=== PATIENT | male | born 1940 | race African-American/Black ===

== ENCOUNTER 2022-07-24 10:44 | Observation (INO) ==
[2022-07-24 11:21] LABS: Basophils # 0.1 10*3/uL (0.0-0.2); Basophils % 0.5 % (0.0-0.8); Eosinophils # 0.1 10*3/uL (0.0-0.87); Hematocrit 36.3 VOL% (42.0-52.0); Hemoglobin 11.1 GM/DL (14.0-18.0); Immature Granulocytes % 1.2 %; Immature Granulocytes Absolute 0.13 #; Lymphocytes # 1.6 10*3/uL (1.4-4.0); Lymphocytes % 14.8 % (21.2-54.2); Mean Corpuscular HGB Conc 30.6 GM/DL (32-36); Mean Corpuscular Volume 84.2 FL (87-102); Mean Platelet Volume 11.3 FL (9.6-12.0); Monocytes # 1.2 10*3/uL (0.11-0.8); Monocytes % 10.5 % (1.7-12.7); Platelet Count 134 T/CUMM (130-400); Red Blood Count 4.31 MC/CUMM (3.8-5.5); Red Cell Distribution Width 15.7 % (9.3-17.3)
[2022-07-24 11:42] LABS: Albumin 3.1 G/DL (3.4-5.0); Bilirubin,Total 0.7 MG/DL (0.20-1.00); Calcium 9.6 MG/DL (8.5-10.1); Osmolality,Calculated 291.7 MOS/KG (273-304); Potassium 4.3 MMOL/L (3.5-5.1); Total Protein 8.5 G/DL (6.4-8.2)
[2022-07-24] MEDS ORDERED: HEPARIN 1,000 UNIT/1 ML VIAL IV STA (12:11)
[2022-07-24] MEDS ORDERED: HEPARIN 5,000 UNIT/1 ML VIAL IV STA (12:18)
[2022-07-24] MEDS ORDERED: HEPARIN DRIP 25,000 UNITS/500 ML PREMIX IV SCH ×2 (12:30→13:30)
[2022-07-24] MEDS ORDERED: GLUCAGON 1 MG VIAL IM PRN (13:14)
[2022-07-24] MEDS ORDERED: DEXTROSE 10% 250 ML BAG IV PRN (13:28)
[2022-07-24] MEDS: SODIUM CHLORIDE 0.9% 1,000 ML IV SCH (15:12)
[2022-07-24] MEDS: INSULIN LISPRO 100 UNIT/ML SUBCUT SCH ×2 (17:31→21:54)
[2022-07-24] MEDS ORDERED: ATORVASTATIN 10 MG TABLET PO SCH (21:00)
[2022-07-24] MEDS: METOPROLOL TARTRATE 50 MG TABLET PO SCH (21:54)
[2022-07-24] MEDS: INSULIN NPH/REGULAR 70/30 100 UNIT/ML SUBCUT SCH (21:54)
[2022-07-24] MEDS: TAMSULOSIN 0.4 MG CAPSULE PO SCH (21:55)
[2022-07-25] MEDS: ALBUTEROL/IPRATROPIUM 3 ML NEB RESP TX SCH ×2 (01:08→07:35)
[2022-07-25] MEDS: SODIUM CHLORIDE 0.9% 1,000 ML IV SCH (04:59)
[2022-07-25 05:52] LABS: Basophils % 0.3 % (0.0-0.8); Eosinophils # 0.2 10*3/uL (0.0-0.87); Eosinophils % 1.9 % (0.00-10.9); Hematocrit 32.2 VOL% (42.0-52.0); Immature Granulocytes Absolute 0.09 #; Lymphocytes # 1.3 10*3/uL (1.4-4.0); Mean Corpuscular HGB Conc 31.1 GM/DL (32-36); Mean Corpuscular Volume 84.1 FL (87-102); Mean Platelet Volume 11.8 FL (9.6-12.0); Monocytes # 1.1 10*3/uL (0.11-0.8); Monocytes % 12.4 % (1.7-12.7); Neutrophils % 69.4 % (38.7-73.9); Platelet Count 141 T/CUMM (130-400); Red Blood Count 3.83 MC/CUMM (3.8-5.5); Red Cell Distribution Width 15.7 % (9.3-17.3); White Blood Count 8.7 T/CUMM (4-12)
[2022-07-25 06:29] LABS: Calcium 9.1 MG/DL (8.5-10.1); Osmolality,Calculated 291.5 MOS/KG (273-304); Potassium 4.4 MMOL/L (3.5-5.1); Risk Ratio 1.95; Thyroid Stimulating Hormone 1.78 uIU/ml (0.358-3.74); VLDL Cholesterol 14.6 MG/DL
[2022-07-25] MEDS ORDERED: LEVOTHYROXINE 50 MCG TABLET PO SCH (06:30)
[2022-07-25] MEDS ORDERED: glipiZIDE 5 MG TABLET PO SCH (08:00)
[2022-07-25 08:02] VITALS: BP 126/60
[2022-07-25] MEDS ORDERED: DAPAGLIFLOZIN 10 MG TABLET PO SCH (09:00)
[2022-07-25] MEDS ORDERED: MONTELUKAST 10 MG TABLET PO SCH (09:00)
[2022-07-25] MEDS ORDERED: sitaGLIPtin 25 MG TABLET PO SCH (09:00)
[2022-07-25] MEDS ORDERED: PANTOPRAZOLE 40 MG TABLET PO SCH (09:00)
[2022-07-25] MEDS ORDERED: hydroCHLOROthiazide 12.5 MG CAPSULE PO SCH (09:00)
[2022-07-25] MEDS ORDERED: amLODIPine 5 MG TABLET PO SCH (09:00)
[2022-07-25] MEDS: TAMSULOSIN 0.4 MG CAPSULE PO SCH (09:11)
[2022-07-25] MEDS: INSULIN LISPRO 100 UNIT/ML SUBCUT SCH (09:12)
[2022-07-25] MEDS: METOPROLOL TARTRATE 50 MG TABLET PO SCH (09:12)
[2022-07-25] MEDS: INSULIN NPH/REGULAR 70/30 100 UNIT/ML SUBCUT SCH (09:13)
[2022-07-25] MEDS ORDERED: APIXABAN 2.5 MG TABLET PO SCH (09:47)
== END 2022-07-25 12:18 | disposition home health service (06) ==
LOC: N.ED 10:44 → N.EDINP 10:44 → N.TELEN 15:51
PROVIDERS: ADMIT Internal Medicine; ATTEND Internal Medicine

== ENCOUNTER 2022-07-26 11:21 | Inpatient (IN) ==
[2022-07-26] MEDS ORDERED: GLUCAGON 1 MG VIAL IM PRN (14:54)
[2022-07-26] MEDS ORDERED: ACETAMINOPHEN 325 MG TABLET PO PRN (14:56)
[2022-07-26 15:03] LABS: Basophils % 0.5 % (0.0-0.8); Eosinophils # 0.1 10*3/uL (0.0-0.87); Eosinophils % 0.7 % (0.00-10.9); Hematocrit 33.4 VOL% (42.0-52.0); Hemoglobin 10.4 GM/DL (14.0-18.0); Immature Granulocytes % 1.1 %; Lymphocytes # 0.8 10*3/uL (1.4-4.0); Lymphocytes % 9.3 % (21.2-54.2); Mean Corpuscular HGB Conc 31.1 GM/DL (32-36); Mean Corpuscular Volume 83.9 FL (87-102); Mean Platelet Volume 11.4 FL (9.6-12.0); Neutrophils % 77.4 % (38.7-73.9); Platelet Count 155 T/CUMM (130-400); Red Blood Count 3.98 MC/CUMM (3.8-5.5); Red Cell Distribution Width 15.5 % (9.3-17.3); White Blood Count 8.9 T/CUMM (4-12)
[2022-07-26] MEDS ORDERED: DEXTROSE 10% 250 ML BAG IV PRN (15:44)
[2022-07-26] MEDS ORDERED: INFLUENZA VIRUS VACCINE 0.5 ML SYRINGE IM ONE (16:06)
[2022-07-26] MEDS: INSULIN LISPRO 100 UNIT/ML SUBCUT SCH ×2 (16:41→21:00)
[2022-07-26] MEDS ORDERED: SALIVA SUBSTITUTE SPRAY 60 ML CAN SWISH/SWAL PRN (16:46)
[2022-07-26] MEDS: MORPHINE 2 MG/1 ML SYRINGE IV PRN (17:19)
[2022-07-26 18:12] LABS: Albumin 2.5 G/DL (3.4-5.0); Bilirubin,Total 0.6 MG/DL (0.20-1.00); Calcium 9.1 MG/DL (8.5-10.1); Osmolality,Calculated 293.5 MOS/KG (273-304); Potassium 4.5 MMOL/L (3.5-5.1); Total Protein 7.6 G/DL (6.4-8.2)
[2022-07-26] MEDS ORDERED: APIXABAN 5 MG TABLET PO SCH (21:00)
[2022-07-26] MEDS: INSULIN NPH/REG 70/30 100 UNIT/ML SUBCUT SCH (21:10)
[2022-07-26] MEDS: TAMSULOSIN 0.4 MG CAPSULE PO SCH (21:15)
[2022-07-26] MEDS: ATORVASTATIN 10 MG TABLET PO SCH (21:16)
[2022-07-26] MEDS: METOPROLOL TARTRATE 50 MG TABLET PO SCH (21:16)
[2022-07-27] MEDS ORDERED: ZALEPLON 5 MG CAPSULE PO PRN (00:30)
[2022-07-27] MEDS: LEVOTHYROXINE 50 MCG TABLET PO SCH (05:57)
[2022-07-27 07:22] LABS: Basophils % 0.5 % (0.0-0.8); Eosinophils # 0.2 10*3/uL (0.0-0.87); Eosinophils % 1.8 % (0.00-10.9); Hematocrit 31.2 VOL% (42.0-52.0); Hemoglobin 10.1 GM/DL (14.0-18.0); Immature Granulocytes % 0.8 %; Immature Granulocytes Absolute 0.07 #; Lymphocytes # 1.4 10*3/uL (1.4-4.0); Lymphocytes % 16.4 % (21.2-54.2); Mean Corpuscular HGB Conc 32.4 GM/DL (32-36); Mean Corpuscular Volume 84.3 FL (87-102); Mean Platelet Volume 11.8 FL (9.6-12.0); Monocytes # 1.1 10*3/uL (0.11-0.8); Monocytes % 13.5 % (1.7-12.7); Platelet Count 169 T/CUMM (130-400); Red Cell Distribution Width 15.7 % (9.3-17.3); White Blood Count 8.5 T/CUMM (4-12)
[2022-07-27 07:34] LABS: Albumin 2.4 G/DL (3.4-5.0); Bilirubin,Total 0.6 MG/DL (0.20-1.00); Calcium 8.9 MG/DL (8.5-10.1); Osmolality,Calculated 290.5 MOS/KG (273-304); Potassium 4.8 MMOL/L (3.5-5.1); Total Protein 7.5 G/DL (6.4-8.2)
[2022-07-27 09:17] LABS: Cancer Antigen 19-9 247.21 U/ML (0-35); Carcinoembryonic Antigen 742.5 NG/ML (0.0-5.0)
[2022-07-27] MEDS: INSULIN LISPRO 100 UNIT/ML SUBCUT SCH ×4 (09:31→20:34)
[2022-07-27] MEDS: INSULIN NPH/REG 70/30 100 UNIT/ML SUBCUT SCH ×2 (09:32→20:34)
[2022-07-27] MEDS: PIPERACILLIN/TAZOBACTAM 3,375 MG in SODIUM CHLORIDE 0.9% 100 ML IV SCH ×2 (09:57→16:14)
[2022-07-27] MEDS: SODIUM CHLORIDE 0.9% 1,000 ML IV SCH (09:57)
[2022-07-27] MEDS: METOPROLOL TARTRATE 50 MG TABLET PO SCH ×2 (10:02→20:30)
[2022-07-27] MEDS: TAMSULOSIN 0.4 MG CAPSULE PO SCH ×2 (10:02→20:29)
[2022-07-27] MEDS: MORPHINE 2 MG/1 ML SYRINGE IV PRN ×2 (10:10→20:32)
[2022-07-27] MEDS: amLODIPine 5 MG TABLET PO SCH (13:11)
[2022-07-27] MEDS: APIXABAN 5 MG TABLET PO SCH ×2 (13:11→20:29)
[2022-07-27] MEDS: DAPAGLIFLOZIN 10 MG TABLET PO SCH (13:11)
[2022-07-27] MEDS: MONTELUKAST 10 MG TABLET PO SCH (13:12)
[2022-07-27] MEDS: ATORVASTATIN 10 MG TABLET PO SCH (20:30)
[2022-07-28] MEDS: SODIUM CHLORIDE 0.9% 1,000 ML IV SCH (00:36)
[2022-07-28] MEDS: PIPERACILLIN/TAZOBACTAM 3,375 MG in SODIUM CHLORIDE 0.9% 100 ML IV SCH ×3 (00:54→17:02)
[2022-07-28] MEDS: LEVOTHYROXINE 50 MCG TABLET PO SCH (05:48)
[2022-07-28 06:00] LABS: Basophils % 0.4 % (0.0-0.8); Eosinophils # 0.1 10*3/uL (0.0-0.87); Eosinophils % 1.9 % (0.00-10.9); Hematocrit 29.8 VOL% (42.0-52.0); Hemoglobin 9.2 GM/DL (14.0-18.0); Immature Granulocytes % 0.8 %; Immature Granulocytes Absolute 0.06 #; Lymphocytes % 12.7 % (21.2-54.2); Mean Corpuscular HGB Conc 30.9 GM/DL (32-36); Mean Corpuscular Volume 84.7 FL (87-102); Mean Platelet Volume 11.1 FL (9.6-12.0); Monocytes % 13.1 % (1.7-12.7); Neutrophils % 71.1 % (38.7-73.9); Platelet Count 167 T/CUMM (130-400); Red Blood Count 3.52 MC/CUMM (3.8-5.5); Red Cell Distribution Width 15.4 % (9.3-17.3); White Blood Count 7.6 T/CUMM (4-12)
[2022-07-28 06:18] LABS: Albumin 2.2 G/DL (3.4-5.0); Bilirubin,Total 0.7 MG/DL (0.20-1.00); Calcium 8.7 MG/DL (8.5-10.1); Osmolality,Calculated 287.5 MOS/KG (273-304); Potassium 4.3 MMOL/L (3.5-5.1)
[2022-07-28] MEDS: METOPROLOL TARTRATE 50 MG TABLET PO SCH ×2 (09:00→21:31)
[2022-07-28] MEDS: INSULIN NPH/REG 70/30 100 UNIT/ML SUBCUT SCH ×2 (09:00→22:35)
[2022-07-28] MEDS: TAMSULOSIN 0.4 MG CAPSULE PO SCH ×2 (09:00→21:31)
[2022-07-28] MEDS: DAPAGLIFLOZIN 10 MG TABLET PO SCH (09:00)
[2022-07-28] MEDS: amLODIPine 5 MG TABLET PO SCH (09:00)
[2022-07-28] MEDS: MONTELUKAST 10 MG TABLET PO SCH (09:00)
[2022-07-28] MEDS: APIXABAN 5 MG TABLET PO SCH (09:00)
[2022-07-28] MEDS: INSULIN LISPRO 100 UNIT/ML SUBCUT SCH ×4 (09:58→22:35)
[2022-07-28] MEDS: HEPARIN DRIP 25,000 UNITS/500 ML PREMIX IV SCH (10:19)
[2022-07-28] MEDS: diphenhydrAMINE CAP 25 MG CAPSULE PO PRN (11:16)
[2022-07-28] MEDS: ATORVASTATIN 10 MG TABLET PO SCH (21:31)
[2022-07-28] MEDS: MORPHINE 2 MG/1 ML SYRINGE IV PRN (22:34)
[2022-07-29] MEDS: PIPERACILLIN/TAZOBACTAM 3,375 MG in SODIUM CHLORIDE 0.9% 100 ML IV SCH ×3 (01:19→17:28)
[2022-07-29 05:29] LABS: Basophils % 0.5 % (0.0-0.8); Eosinophils # 0.2 10*3/uL (0.0-0.87); Eosinophils % 2.3 % (0.00-10.9); Hematocrit 29.3 VOL% (42.0-52.0); Hemoglobin 8.9 GM/DL (14.0-18.0); Immature Granulocytes % 0.9 %; Immature Granulocytes Absolute 0.07 #; Lymphocytes # 1.1 10*3/uL (1.4-4.0); Lymphocytes % 15.2 % (21.2-54.2); Mean Corpuscular HGB Conc 30.4 GM/DL (32-36); Mean Platelet Volume 10.9 FL (9.6-12.0); Monocytes # 1.1 10*3/uL (0.11-0.8); Monocytes % 14.4 % (1.7-12.7); Neutrophils % 66.7 % (38.7-73.9); Platelet Count 210 T/CUMM (130-400); Red Blood Count 3.49 MC/CUMM (3.8-5.5); Red Cell Distribution Width 15.5 % (9.3-17.3); White Blood Count 7.5 T/CUMM (4-12)
[2022-07-29 05:58] LABS: Albumin 2.1 G/DL (3.4-5.0); Bilirubin,Total 0.8 MG/DL (0.20-1.00); Calcium 8.7 MG/DL (8.5-10.1); Osmolality,Calculated 288.4 MOS/KG (273-304); Potassium 4.4 MMOL/L (3.5-5.1); Total Protein 6.9 G/DL (6.4-8.2)
[2022-07-29] MEDS: LEVOTHYROXINE 50 MCG TABLET PO SCH (06:25)
[2022-07-29 07:33] LABS: INR 1.1; PT Patient Result 12.4 SECS (10.1-12.1)
[2022-07-29] MEDS: TAMSULOSIN 0.4 MG CAPSULE PO SCH ×2 (09:08→21:38)
[2022-07-29] MEDS: amLODIPine 5 MG TABLET PO SCH (09:08)
[2022-07-29] MEDS: DAPAGLIFLOZIN 10 MG TABLET PO SCH (09:08)
[2022-07-29] MEDS: diphenhydrAMINE CAP 25 MG CAPSULE PO PRN ×2 (09:08→17:28)
[2022-07-29] MEDS: METOPROLOL TARTRATE 50 MG TABLET PO SCH ×2 (09:08→21:38)
[2022-07-29] MEDS: MONTELUKAST 10 MG TABLET PO SCH (09:08)
[2022-07-29] MEDS: INSULIN NPH/REG 70/30 100 UNIT/ML SUBCUT SCH ×2 (09:09→21:47)
[2022-07-29] MEDS: HEPARIN DRIP 25,000 UNITS/500 ML PREMIX IV SCH ×2 (09:31→14:39)
[2022-07-29] MEDS: INSULIN LISPRO 100 UNIT/ML SUBCUT SCH ×4 (09:31→21:46)
[2022-07-29] MEDS: ATORVASTATIN 10 MG TABLET PO SCH (21:38)
[2022-07-30] MEDS: PIPERACILLIN/TAZOBACTAM 3,375 MG in SODIUM CHLORIDE 0.9% 100 ML IV SCH ×3 (01:14→18:14)
[2022-07-30] MEDS: LEVOTHYROXINE 50 MCG TABLET PO SCH (05:55)
[2022-07-30 06:13] LABS: Basophils % 0.6 % (0.0-0.8); Eosinophils # 0.2 10*3/uL (0.0-0.87); Hematocrit 28.4 VOL% (42.0-52.0); Hemoglobin 8.8 GM/DL (14.0-18.0); Immature Granulocytes % 1.2 %; Immature Granulocytes Absolute 0.09 #; Lymphocytes # 1.4 10*3/uL (1.4-4.0); Lymphocytes % 18.8 % (21.2-54.2); Mean Corpuscular Volume 83.5 FL (87-102); Monocytes % 14.2 % (1.7-12.7); Neutrophils % 62.2 % (38.7-73.9); Platelet Count 258 T/CUMM (130-400); Red Cell Distribution Width 15.4 % (9.3-17.3); White Blood Count 7.2 T/CUMM (4-12)
[2022-07-30 06:25] LABS: Calcium 8.9 MG/DL (8.5-10.1); Osmolality,Calculated 280.7 MOS/KG (273-304); Potassium 4.3 MMOL/L (3.5-5.1)
[2022-07-30] MEDS: INSULIN LISPRO 100 UNIT/ML SUBCUT SCH ×4 (08:07→20:40)
[2022-07-30] MEDS: TAMSULOSIN 0.4 MG CAPSULE PO SCH ×2 (08:31→20:38)
[2022-07-30] MEDS: DAPAGLIFLOZIN 10 MG TABLET PO SCH (08:31)
[2022-07-30] MEDS: INSULIN NPH/REG 70/30 100 UNIT/ML SUBCUT SCH ×2 (08:31→20:44)
[2022-07-30] MEDS: METOPROLOL TARTRATE 50 MG TABLET PO SCH ×2 (08:32→20:38)
[2022-07-30] MEDS: amLODIPine 5 MG TABLET PO SCH (08:32)
[2022-07-30] MEDS: MONTELUKAST 10 MG TABLET PO SCH (08:32)
[2022-07-30] MEDS: diphenhydrAMINE CAP 25 MG CAPSULE PO PRN (08:32)
[2022-07-30] MEDS: ALUMINUM/MAGNES/SIMETH MAX STR 30 ML UDCUP PO PRN (09:00)
[2022-07-30] MEDS: HEPARIN DRIP 25,000 UNITS/500 ML PREMIX IV SCH (11:55)
[2022-07-30] MEDS: ALBUTEROL 2.5 MG/3 ML NEB RESP TX PRN (15:38)
[2022-07-30] MEDS: ATORVASTATIN 10 MG TABLET PO SCH (20:38)
[2022-07-31] MEDS: MORPHINE 2 MG/1 ML SYRINGE IV PRN (01:46)
[2022-07-31] MEDS: PIPERACILLIN/TAZOBACTAM 3,375 MG in SODIUM CHLORIDE 0.9% 100 ML IV SCH ×3 (01:47→17:12)
[2022-07-31 06:04] LABS: Basophils % 0.4 % (0.0-0.8); Eosinophils # 0.2 10*3/uL (0.0-0.87); Eosinophils % 2.5 % (0.00-10.9); Hematocrit 29.1 VOL% (42.0-52.0); Immature Granulocytes % 1.2 %; Immature Granulocytes Absolute 0.09 #; Lymphocytes # 1.4 10*3/uL (1.4-4.0); Lymphocytes % 18.9 % (21.2-54.2); Mean Corpuscular HGB Conc 30.9 GM/DL (32-36); Mean Corpuscular Volume 83.1 FL (87-102); Monocytes % 14.3 % (1.7-12.7); Neutrophils % 62.7 % (38.7-73.9); Platelet Count 265 T/CUMM (130-400); Red Cell Distribution Width 15.5 % (9.3-17.3); White Blood Count 7.3 T/CUMM (4-12)
[2022-07-31 06:23] LABS: Calcium 9.3 MG/DL (8.5-10.1); Osmolality,Calculated 280.7 MOS/KG (273-304); Potassium 4.2 MMOL/L (3.5-5.1)
[2022-07-31] MEDS: LEVOTHYROXINE 50 MCG TABLET PO SCH (07:37)
[2022-07-31] MEDS: INSULIN LISPRO 100 UNIT/ML SUBCUT SCH ×4 (08:04→21:00)
[2022-07-31] MEDS: TAMSULOSIN 0.4 MG CAPSULE PO SCH ×2 (08:04→21:00)
[2022-07-31] MEDS: DAPAGLIFLOZIN 10 MG TABLET PO SCH (08:04)
[2022-07-31] MEDS: INSULIN NPH/REG 70/30 100 UNIT/ML SUBCUT SCH ×2 (08:05→22:22)
[2022-07-31] MEDS: MONTELUKAST 10 MG TABLET PO SCH (08:05)
[2022-07-31] MEDS ORDERED: DIAZEPAM 5 MG TABLET PO ONE ×2 (09:06→09:30)
[2022-07-31] MEDS: amLODIPine 5 MG TABLET PO SCH (11:22)
[2022-07-31] MEDS: METOPROLOL TARTRATE 50 MG TABLET PO SCH ×2 (11:22→21:00)
[2022-07-31] MEDS: SODIUM CHLORIDE 0.45% 1,000 ML IV SCH (11:32)
[2022-07-31] MEDS: diphenhydrAMINE CAP 25 MG CAPSULE PO PRN (13:14)
[2022-07-31] MEDS: HEPARIN DRIP 25,000 UNITS/500 ML PREMIX IV SCH (15:44)
[2022-07-31] MEDS: ALBUTEROL 2.5 MG/3 ML NEB RESP TX PRN (15:50)
[2022-07-31] MEDS: ATORVASTATIN 10 MG TABLET PO SCH (21:00)
[2022-07-31] MEDS ORDERED: APIXABAN 5 MG TABLET PO SCH (21:00)
[2022-08-01] MEDS: PIPERACILLIN/TAZOBACTAM 3,375 MG in SODIUM CHLORIDE 0.9% 100 ML IV SCH ×2 (01:43→08:02)
[2022-08-01 05:11] LABS: Basophils % 0.4 % (0.0-0.8); Eosinophils # 0.2 10*3/uL (0.0-0.87); Eosinophils % 2.8 % (0.00-10.9); Hematocrit 28.3 VOL% (42.0-52.0); Hemoglobin 8.7 GM/DL (14.0-18.0); Immature Granulocytes % 1.3 %; Immature Granulocytes Absolute 0.09 #; Lymphocytes % 14.6 % (21.2-54.2); Mean Corpuscular HGB Conc 30.7 GM/DL (32-36); Mean Corpuscular Volume 83.5 FL (87-102); Monocytes # 1.2 10*3/uL (0.11-0.8); Monocytes % 16.6 % (1.7-12.7); Neutrophils % 64.3 % (38.7-73.9); Platelet Count 290 T/CUMM (130-400); Red Blood Count 3.39 MC/CUMM (3.8-5.5); Red Cell Distribution Width 15.4 % (9.3-17.3); White Blood Count 7.1 T/CUMM (4-12)
[2022-08-01 05:34] LABS: Calcium 8.9 MG/DL (8.5-10.1); Osmolality,Calculated 280.5 MOS/KG (273-304); Potassium 4.5 MMOL/L (3.5-5.1)
[2022-08-01 05:46] LABS: Hypochromia 1+; Lymphocytes 14 % (20-55); Microcytosis Slight; Ovalocytes Slight; Target Cells Slight; Total Cells Counted 100
[2022-08-01 05:47] LABS: Platelet Estimate Normal; Polychromasia Slight
[2022-08-01] MEDS: LEVOTHYROXINE 50 MCG TABLET PO SCH (06:19)
[2022-08-01] MEDS: HEPARIN DRIP 25,000 UNITS/500 ML PREMIX IV SCH (07:00)
[2022-08-01] MEDS: INSULIN LISPRO 100 UNIT/ML SUBCUT SCH ×4 (07:23→21:14)
[2022-08-01] MEDS: INSULIN NPH/REG 70/30 100 UNIT/ML SUBCUT SCH ×2 (08:02→21:14)
[2022-08-01] MEDS: TAMSULOSIN 0.4 MG CAPSULE PO SCH ×2 (08:03→21:14)
[2022-08-01] MEDS: MONTELUKAST 10 MG TABLET PO SCH (08:03)
[2022-08-01] MEDS: DAPAGLIFLOZIN 10 MG TABLET PO SCH (08:03)
[2022-08-01] MEDS: amLODIPine 5 MG TABLET PO SCH (08:03)
[2022-08-01] MEDS: METOPROLOL TARTRATE 50 MG TABLET PO SCH ×2 (08:03→21:14)
[2022-08-01] MEDS: SODIUM CHLORIDE 0.45% 1,000 ML IV SCH (08:39)
[2022-08-01 11:22] LABS: INR 1.1; PT Patient Result 12.1 SECS (10.1-12.1); Partial Thromboplastin Time 92.3 SECS (23.7-32.9)
[2022-08-01] MEDS: ALUMINUM/MAGNES/SIMETH MAX STR 30 ML UDCUP PO PRN (15:11)
[2022-08-01] MEDS: ONDANSETRON 4 MG/2 ML VIAL IV PRN (18:24)
[2022-08-01] MEDS ORDERED: APIXABAN 2.5 MG TABLET PO SCH (21:00)
[2022-08-01] MEDS: ATORVASTATIN 10 MG TABLET PO SCH (21:14)
[2022-08-02] MEDS: LEVOTHYROXINE 50 MCG TABLET PO SCH (05:42)
[2022-08-02 05:56] LABS: Basophils % 0.3 % (0.0-0.8); Eosinophils # 0.1 10*3/uL (0.0-0.87); Eosinophils % 1.1 % (0.00-10.9); Hematocrit 27.7 VOL% (42.0-52.0); Hemoglobin 8.6 GM/DL (14.0-18.0); Immature Granulocytes % 0.6 %; Immature Granulocytes Absolute 0.04 #; Lymphocytes # 1.2 10*3/uL (1.4-4.0); Lymphocytes % 15.9 % (21.2-54.2); Mean Corpuscular Volume 83.9 FL (87-102); Mean Platelet Volume 10.6 FL (9.6-12.0); Monocytes # 1.1 10*3/uL (0.11-0.8); Monocytes % 15.4 % (1.7-12.7); Neutrophils % 66.7 % (38.7-73.9); Platelet Count 268 T/CUMM (130-400); Red Cell Distribution Width 15.3 % (9.3-17.3); White Blood Count 7.2 T/CUMM (4-12)
[2022-08-02 06:19] LABS: Calcium 9.3 MG/DL (8.5-10.1); Osmolality,Calculated 282.1 MOS/KG (273-304); Potassium 4.2 MMOL/L (3.5-5.1)
[2022-08-02] MEDS: METOPROLOL TARTRATE 50 MG TABLET PO SCH ×2 (10:43→21:01)
[2022-08-02] MEDS: MONTELUKAST 10 MG TABLET PO SCH (10:43)
[2022-08-02] MEDS: DAPAGLIFLOZIN 10 MG TABLET PO SCH (10:43)
[2022-08-02] MEDS: APIXABAN 5 MG TABLET PO SCH ×2 (10:43→21:00)
[2022-08-02] MEDS: TAMSULOSIN 0.4 MG CAPSULE PO SCH ×2 (10:44→21:01)
[2022-08-02] MEDS: amLODIPine 5 MG TABLET PO SCH (10:44)
[2022-08-02] MEDS: INSULIN LISPRO 100 UNIT/ML SUBCUT SCH ×4 (10:44→22:18)
[2022-08-02] MEDS: INSULIN NPH/REG 70/30 100 UNIT/ML SUBCUT SCH (10:45)
[2022-08-02] MEDS: ALUMINUM/MAGNES/SIMETH MAX STR 30 ML UDCUP PO PRN ×2 (10:49→14:53)
[2022-08-02] MEDS: ALBUTEROL 2.5 MG/3 ML NEB RESP TX PRN (11:29)
[2022-08-02] MEDS: ATORVASTATIN 10 MG TABLET PO SCH (21:01)
[2022-08-03] MEDS: INSULIN NPH/REG 70/30 100 UNIT/ML SUBCUT SCH ×3 (01:17→21:03)
[2022-08-03] MEDS: ALUMINUM/MAGNES/SIMETH MAX STR 30 ML UDCUP PO PRN (03:08)
[2022-08-03] MEDS: LEVOTHYROXINE 50 MCG TABLET PO SCH (06:30)
[2022-08-03 08:45] LABS: Basophils % 0.4 % (0.0-0.8); Eosinophils # 0.1 10*3/uL (0.0-0.87); Eosinophils % 1.2 % (0.00-10.9); Hematocrit 28.3 VOL% (42.0-52.0); Hemoglobin 8.6 GM/DL (14.0-18.0); Immature Granulocytes % 1.3 %; Lymphocytes % 13.1 % (21.2-54.2); Mean Corpuscular HGB Conc 30.4 GM/DL (32-36); Mean Platelet Volume 9.7 FL (9.6-12.0); Monocytes # 1.2 10*3/uL (0.11-0.8); Monocytes % 15.2 % (1.7-12.7); Neutrophils % 68.8 % (38.7-73.9); Platelet Count 249 T/CUMM (130-400); Red Blood Count 3.33 MC/CUMM (3.8-5.5); Red Cell Distribution Width 15.8 % (9.3-17.3); White Blood Count 7.6 T/CUMM (4-12)
[2022-08-03] MEDS: TAMSULOSIN 0.4 MG CAPSULE PO SCH ×2 (08:53→20:58)
[2022-08-03] MEDS: MONTELUKAST 10 MG TABLET PO SCH (08:53)
[2022-08-03] MEDS: METOPROLOL TARTRATE 50 MG TABLET PO SCH ×2 (08:53→20:58)
[2022-08-03] MEDS: ONDANSETRON 4 MG/2 ML VIAL IV PRN ×2 (08:53→19:10)
[2022-08-03] MEDS: DAPAGLIFLOZIN 10 MG TABLET PO SCH (08:53)
[2022-08-03] MEDS: APIXABAN 5 MG TABLET PO SCH (08:53)
[2022-08-03] MEDS: amLODIPine 5 MG TABLET PO SCH (08:53)
[2022-08-03 09:08] LABS: Calcium 9.2 MG/DL (8.5-10.1); Osmolality,Calculated 283.4 MOS/KG (273-304); Potassium 4.8 MMOL/L (3.5-5.1)
[2022-08-03] MEDS: INSULIN LISPRO 100 UNIT/ML SUBCUT SCH ×4 (09:11→21:04)
[2022-08-03] MEDS: ENOXAPARIN 80 MG/0.8 ML SYRINGE SUBCUT SCH (09:59)
[2022-08-03] MEDS: SERTRALINE 25 MG TABLET PO SCH (13:37)
[2022-08-03] MEDS: ATORVASTATIN 10 MG TABLET PO SCH (20:58)
[2022-08-04] MEDS: ENOXAPARIN 80 MG/0.8 ML SYRINGE SUBCUT SCH ×2 (00:19→10:27)
[2022-08-04 05:04] LABS: Basophils # 0.1 10*3/uL (0.0-0.2); Basophils % 0.7 % (0.0-0.8); Eosinophils # 0.1 10*3/uL (0.0-0.87); Eosinophils % 1.3 % (0.00-10.9); Hematocrit 26.8 VOL% (42.0-52.0); Hemoglobin 8.2 GM/DL (14.0-18.0); Immature Granulocytes % 0.9 %; Immature Granulocytes Absolute 0.07 #; Lymphocytes # 1.1 10*3/uL (1.4-4.0); Lymphocytes % 15.3 % (21.2-54.2); Mean Corpuscular HGB Conc 30.6 GM/DL (32-36); Mean Corpuscular Volume 84.5 FL (87-102); Monocytes # 1.2 10*3/uL (0.11-0.8); Monocytes % 16.7 % (1.7-12.7); Neutrophils % 65.1 % (38.7-73.9); Platelet Count 248 T/CUMM (130-400); Red Blood Count 3.17 MC/CUMM (3.8-5.5); Red Cell Distribution Width 15.5 % (9.3-17.3); White Blood Count 7.4 T/CUMM (4-12)
[2022-08-04 05:21] LABS: Calcium 8.9 MG/DL (8.5-10.1); Osmolality,Calculated 283.3 MOS/KG (273-304); Potassium 4.4 MMOL/L (3.5-5.1)
[2022-08-04] MEDS: LEVOTHYROXINE 50 MCG TABLET PO SCH (06:22)
[2022-08-04 07:01] LABS: Eosinophils 2 % (0-10); Hypochromia Slight; Lymphocytes 10 % (20-55); Metamyelocytes 1 %; Microcytosis Slight; Platelet Estimate Normal; Total Cells Counted 100
[2022-08-04] MEDS: INSULIN LISPRO 100 UNIT/ML SUBCUT SCH ×3 (07:39→16:30)
[2022-08-04] MEDS: DAPAGLIFLOZIN 10 MG TABLET PO SCH (09:46)
[2022-08-04] MEDS: TAMSULOSIN 0.4 MG CAPSULE PO SCH ×2 (09:46→20:29)
[2022-08-04] MEDS: METOPROLOL TARTRATE 50 MG TABLET PO SCH ×2 (09:46→20:29)
[2022-08-04] MEDS: MONTELUKAST 10 MG TABLET PO SCH (09:46)
[2022-08-04] MEDS: SERTRALINE 25 MG TABLET PO SCH (09:47)
[2022-08-04] MEDS: amLODIPine 5 MG TABLET PO SCH (09:47)
[2022-08-04] MEDS: INSULIN NPH/REG 70/30 100 UNIT/ML SUBCUT SCH (09:51)
[2022-08-04] MEDS: ALUMINUM/MAGNES/SIMETH MAX STR 30 ML UDCUP PO PRN (19:57)
[2022-08-04] MEDS: ATORVASTATIN 10 MG TABLET PO SCH (20:29)
[2022-08-04] MEDS: ZALEPLON 5 MG CAPSULE PO PRN (20:29)
[2022-08-05] MEDS: INSULIN LISPRO 100 UNIT/ML SUBCUT SCH ×5 (01:00→21:13)
[2022-08-05] MEDS: INSULIN NPH/REG 70/30 100 UNIT/ML SUBCUT SCH ×3 (01:00→21:31)
[2022-08-05] MEDS: ONDANSETRON 4 MG/2 ML VIAL IV PRN ×2 (02:15→08:54)
[2022-08-05] MEDS: ENOXAPARIN 80 MG/0.8 ML SYRINGE SUBCUT SCH ×3 (03:16→21:57)
[2022-08-05 05:31] LABS: Basophils % 0.2 % (0.0-0.8); Eosinophils # 0.1 10*3/uL (0.0-0.87); Eosinophils % 0.7 % (0.00-10.9); Hematocrit 26.2 VOL% (42.0-52.0); Hemoglobin 8.1 GM/DL (14.0-18.0); Immature Granulocytes Absolute 0.08 #; Lymphocytes # 0.9 10*3/uL (1.4-4.0); Lymphocytes % 10.6 % (21.2-54.2); Mean Corpuscular HGB Conc 30.9 GM/DL (32-36); Mean Corpuscular Volume 83.4 FL (87-102); Mean Platelet Volume 10.6 FL (9.6-12.0); Monocytes # 1.1 10*3/uL (0.11-0.8); Monocytes % 13.4 % (1.7-12.7); Neutrophils % 74.1 % (38.7-73.9); Platelet Count 304 T/CUMM (130-400); Red Blood Count 3.14 MC/CUMM (3.8-5.5); Red Cell Distribution Width 15.4 % (9.3-17.3); White Blood Count 8.1 T/CUMM (4-12)
[2022-08-05 05:45] LABS: Calcium 8.8 MG/DL (8.5-10.1); Osmolality,Calculated 279.5 MOS/KG (273-304); Potassium 4.1 MMOL/L (3.5-5.1)
[2022-08-05] MEDS: LEVOTHYROXINE 50 MCG TABLET PO SCH (06:50)
[2022-08-05] MEDS: MONTELUKAST 10 MG TABLET PO SCH (08:54)
[2022-08-05] MEDS: DAPAGLIFLOZIN 10 MG TABLET PO SCH (08:54)
[2022-08-05] MEDS: SERTRALINE 25 MG TABLET PO SCH (08:54)
[2022-08-05] MEDS: TAMSULOSIN 0.4 MG CAPSULE PO SCH ×2 (08:55→21:56)
[2022-08-05] MEDS: METOPROLOL TARTRATE 50 MG TABLET PO SCH ×2 (08:55→21:56)
[2022-08-05] MEDS: amLODIPine 5 MG TABLET PO SCH (08:55)
[2022-08-05] MEDS: ATORVASTATIN 10 MG TABLET PO SCH (21:56)
[2022-08-06] MEDS: LEVOTHYROXINE 50 MCG TABLET PO SCH (05:39)
[2022-08-06 05:54] LABS: Basophils % 0.4 % (0.0-0.8); Eosinophils # 0.1 10*3/uL (0.0-0.87); Eosinophils % 1.1 % (0.00-10.9); Hematocrit 26.3 VOL% (42.0-52.0); Hemoglobin 8.3 GM/DL (14.0-18.0); Immature Granulocytes % 1.1 %; Immature Granulocytes Absolute 0.08 #; Lymphocytes # 1.2 10*3/uL (1.4-4.0); Lymphocytes % 16.3 % (21.2-54.2); Mean Corpuscular HGB Conc 31.6 GM/DL (32-36); Monocytes # 1.2 10*3/uL (0.11-0.8); Neutrophils % 64.1 % (38.7-73.9); Platelet Count 300 T/CUMM (130-400); Red Blood Count 3.13 MC/CUMM (3.8-5.5); Red Cell Distribution Width 15.5 % (9.3-17.3); White Blood Count 7.3 T/CUMM (4-12)
[2022-08-06 06:09] LABS: Calcium 9.1 MG/DL (8.5-10.1); Potassium 4.1 MMOL/L (3.5-5.1)
[2022-08-06 06:17] LABS: Hypochromia 1+; Lymphocytes 12 % (20-55); Microcytosis 1+; Platelet Estimate Adequate; Total Cells Counted 100
[2022-08-06] MEDS: INSULIN LISPRO 100 UNIT/ML SUBCUT SCH ×4 (09:02→21:17)
[2022-08-06] MEDS: INSULIN NPH/REG 70/30 100 UNIT/ML SUBCUT SCH ×2 (10:35→21:16)
[2022-08-06] MEDS: TAMSULOSIN 0.4 MG CAPSULE PO SCH ×2 (10:35→21:17)
[2022-08-06] MEDS: DAPAGLIFLOZIN 10 MG TABLET PO SCH (10:35)
[2022-08-06] MEDS: amLODIPine 5 MG TABLET PO SCH (10:36)
[2022-08-06] MEDS: SERTRALINE 25 MG TABLET PO SCH (10:36)
[2022-08-06] MEDS: METOPROLOL TARTRATE 50 MG TABLET PO SCH ×2 (10:36→21:17)
[2022-08-06] MEDS: MONTELUKAST 10 MG TABLET PO SCH (10:36)
[2022-08-06] MEDS: ENOXAPARIN 80 MG/0.8 ML SYRINGE SUBCUT SCH ×2 (10:36→21:18)
[2022-08-06] MEDS: ALUMINUM/MAGNES/SIMETH MAX STR 30 ML UDCUP PO PRN (11:29)
[2022-08-06] MEDS ORDERED: hydrALAZINE 20 MG/1 ML VIAL IV PRN (12:21)
[2022-08-06] MEDS: MORPHINE 2 MG/1 ML SYRINGE IV PRN (20:11)
[2022-08-06] MEDS: ATORVASTATIN 10 MG TABLET PO SCH (21:17)
[2022-08-07 05:38] LABS: Basophils % 0.4 % (0.0-0.8); Eosinophils % 0.1 % (0.00-10.9); Hematocrit 28.9 VOL% (42.0-52.0); Hemoglobin 8.8 GM/DL (14.0-18.0); Immature Granulocytes % 1.3 %; Immature Granulocytes Absolute 0.11 #; Lymphocytes # 0.8 10*3/uL (1.4-4.0); Lymphocytes % 9.2 % (21.2-54.2); Mean Corpuscular HGB Conc 30.4 GM/DL (32-36); Mean Corpuscular Volume 84.5 FL (87-102); Mean Platelet Volume 10.7 FL (9.6-12.0); Monocytes # 1.2 10*3/uL (0.11-0.8); Platelet Count 309 T/CUMM (130-400); Red Blood Count 3.42 MC/CUMM (3.8-5.5); Red Cell Distribution Width 15.5 % (9.3-17.3); White Blood Count 8.2 T/CUMM (4-12)
[2022-08-07] MEDS: LEVOTHYROXINE 50 MCG TABLET PO SCH (05:39)
[2022-08-07 05:52] LABS: Osmolality,Calculated 278.4 MOS/KG (273-304); Potassium 3.8 MMOL/L (3.5-5.1)
[2022-08-07] MEDS: INSULIN LISPRO 100 UNIT/ML SUBCUT SCH ×4 (07:31→21:20)
[2022-08-07] MEDS: MONTELUKAST 10 MG TABLET PO SCH (13:27)
[2022-08-07] MEDS: amLODIPine 5 MG TABLET PO SCH (13:27)
[2022-08-07] MEDS: DAPAGLIFLOZIN 10 MG TABLET PO SCH (13:27)
[2022-08-07] MEDS: METOPROLOL TARTRATE 50 MG TABLET PO SCH ×2 (13:27→21:00)
[2022-08-07] MEDS: SERTRALINE 25 MG TABLET PO SCH (13:27)
[2022-08-07] MEDS: TAMSULOSIN 0.4 MG CAPSULE PO SCH ×2 (13:28→21:00)
[2022-08-07] MEDS: ENOXAPARIN 80 MG/0.8 ML SYRINGE SUBCUT SCH ×2 (13:29→21:00)
[2022-08-07] MEDS: MORPHINE 2 MG/1 ML SYRINGE IV PRN (18:16)
[2022-08-07] MEDS: ATORVASTATIN 10 MG TABLET PO SCH (21:00)
[2022-08-07] MEDS: INSULIN NPH/REG 70/30 100 UNIT/ML SUBCUT SCH (21:21)
[2022-08-08] MEDS: LEVOTHYROXINE 50 MCG TABLET PO SCH (06:12)
[2022-08-08] MEDS: INSULIN LISPRO 100 UNIT/ML SUBCUT SCH ×4 (08:41→21:40)
[2022-08-08] MEDS: INSULIN NPH/REG 70/30 100 UNIT/ML SUBCUT SCH ×2 (08:42→09:34)
[2022-08-08] MEDS: amLODIPine 5 MG TABLET PO SCH (09:34)
[2022-08-08] MEDS: METOPROLOL TARTRATE 50 MG TABLET PO SCH ×2 (09:34→21:12)
[2022-08-08] MEDS: DAPAGLIFLOZIN 10 MG TABLET PO SCH (09:34)
[2022-08-08] MEDS: TAMSULOSIN 0.4 MG CAPSULE PO SCH ×2 (09:34→21:12)
[2022-08-08] MEDS: ENOXAPARIN 80 MG/0.8 ML SYRINGE SUBCUT SCH ×2 (09:35→21:40)
[2022-08-08] MEDS: SERTRALINE 25 MG TABLET PO SCH (09:35)
[2022-08-08] MEDS: MONTELUKAST 10 MG TABLET PO SCH (09:35)
[2022-08-08] MEDS: ONDANSETRON 4 MG/2 ML VIAL IV PRN (09:40)
[2022-08-08] MEDS ORDERED: TUBERCULIN SKIN TEST 0.1 ML SYRINGE INTRADERM ONE (12:00)
[2022-08-08] MEDS: MORPHINE 2 MG/1 ML SYRINGE IV PRN (16:46)
[2022-08-08] MEDS: ZALEPLON 5 MG CAPSULE PO PRN (21:12)
[2022-08-08] MEDS: ATORVASTATIN 10 MG TABLET PO SCH (21:12)
[2022-08-09] MEDS: LEVOTHYROXINE 50 MCG TABLET PO SCH (06:03)
[2022-08-09] MEDS: INSULIN LISPRO 100 UNIT/ML SUBCUT SCH ×4 (07:28→21:03)
[2022-08-09] MEDS: amLODIPine 5 MG TABLET PO SCH (08:31)
[2022-08-09] MEDS: DAPAGLIFLOZIN 10 MG TABLET PO SCH (08:31)
[2022-08-09] MEDS: METOPROLOL TARTRATE 50 MG TABLET PO SCH ×2 (08:31→21:03)
[2022-08-09] MEDS: TAMSULOSIN 0.4 MG CAPSULE PO SCH ×2 (08:32→21:03)
[2022-08-09] MEDS: SERTRALINE 25 MG TABLET PO SCH (08:32)
[2022-08-09] MEDS: MONTELUKAST 10 MG TABLET PO SCH (08:32)
[2022-08-09] MEDS: ENOXAPARIN 80 MG/0.8 ML SYRINGE SUBCUT SCH ×2 (09:53→21:03)
[2022-08-09] MEDS: MORPHINE 2 MG/1 ML SYRINGE IV PRN (15:17)
[2022-08-09] MEDS: ZALEPLON 5 MG CAPSULE PO PRN (21:02)
[2022-08-09] MEDS: ATORVASTATIN 10 MG TABLET PO SCH (21:02)
[2022-08-10] MEDS: diphenhydrAMINE CAP 25 MG CAPSULE PO PRN (03:05)
[2022-08-10] MEDS: LEVOTHYROXINE 50 MCG TABLET PO SCH (05:47)
[2022-08-10 06:02] LABS: Basophils % 0.4 % (0.0-0.8); Eosinophils # 0.1 10*3/uL (0.0-0.87); Hematocrit 29.2 VOL% (42.0-52.0); Hemoglobin 9.1 GM/DL (14.0-18.0); Immature Granulocytes % 1.4 %; Lymphocytes # 1.2 10*3/uL (1.4-4.0); Lymphocytes % 16.4 % (21.2-54.2); Mean Corpuscular HGB Conc 31.2 GM/DL (32-36); Mean Corpuscular Volume 83.7 FL (87-102); Mean Platelet Volume 10.1 FL (9.6-12.0); Monocytes # 1.1 10*3/uL (0.11-0.8); Monocytes % 15.7 % (1.7-12.7); Neutrophils % 65.1 % (38.7-73.9); Platelet Count 332 T/CUMM (130-400); Red Blood Count 3.49 MC/CUMM (3.8-5.5); Red Cell Distribution Width 15.8 % (9.3-17.3); White Blood Count 7.2 T/CUMM (4-12)
[2022-08-10 06:28] LABS: Calcium 9.1 MG/DL (8.5-10.1); Osmolality,Calculated 282.4 MOS/KG (273-304); Potassium 4.4 MMOL/L (3.5-5.1)
[2022-08-10 06:30] LABS: Eosinophils 1 % (0-10); Hypochromia 1+; Lymphocytes 17 % (20-55); Microcytosis 1+; Platelet Estimate Adequate; Total Cells Counted 100
[2022-08-10 07:44] VITALS: BP 164/61
[2022-08-10] MEDS: INSULIN LISPRO 100 UNIT/ML SUBCUT SCH (07:45)
[2022-08-10] MEDS: TAMSULOSIN 0.4 MG CAPSULE PO SCH (09:00)
[2022-08-10] MEDS: amLODIPine 5 MG TABLET PO SCH (09:01)
[2022-08-10] MEDS: METOPROLOL TARTRATE 50 MG TABLET PO SCH (09:01)
[2022-08-10] MEDS: SERTRALINE 25 MG TABLET PO SCH (09:01)
[2022-08-10] MEDS: MONTELUKAST 10 MG TABLET PO SCH (09:02)
[2022-08-10] MEDS: DAPAGLIFLOZIN 10 MG TABLET PO SCH (09:02)
[2022-08-10] MEDS: ENOXAPARIN 80 MG/0.8 ML SYRINGE SUBCUT SCH (11:05)
== END 2022-08-10 11:59 | disposition home health service (06) | DRG 175 ==
LOC: N.ED 11:21 → SUATTDRO 14:55 → N.EDINP 14:55 → N.3E 15:59
PROVIDERS: ADMIT Internal Medicine; ATTEND Internal Medicine

== ENCOUNTER 2022-09-16 16:17 | Inpatient (IN) ==
[2022-09-16] MEDS ORDERED: SODIUM CHLORIDE 0.9% 1,000 ML IV STA ×2 (17:24→18:24)
[2022-09-16] MEDS ORDERED: ONDANSETRON 4 MG/2 ML VIAL IV STA (17:24)
[2022-09-16 17:33] LABS: Basophils % 0.3 % (0.0-0.8); Eosinophils % 0.2 % (0.00-10.9); Hematocrit 32.4 VOL% (42.0-52.0); Hemoglobin 10.1 GM/DL (14.0-18.0); Immature Granulocytes Absolute 0.09 #; Lymphocytes # 1.2 10*3/uL (1.4-4.0); Lymphocytes % 12.7 % (21.2-54.2); Mean Corpuscular HGB Conc 31.2 GM/DL (32-36); Mean Corpuscular Volume 79.4 FL (87-102); Monocytes # 0.8 10*3/uL (0.11-0.8); Monocytes % 8.2 % (1.7-12.7); NRBC # 0.02 10*3/uL; Neutrophils % 77.6 % (38.7-73.9); Platelet Count 275 T/CUMM (130-400); Red Blood Count 4.08 MC/CUMM (3.8-5.5); Red Cell Distribution Width 18.4 % (9.3-17.3); White Blood Count 9.3 T/CUMM (4-12)
[2022-09-16 17:49] LABS: Alanine Aminotransferase 83 U/L (16-61); Albumin 2.1 G/DL (3.4-5.0); Alkaline Phosphatase 632 U/L (45-117); Amylase 28 U/L (25-115); Aspartate Amino Transferase 143 U/L (0-37); Blood Urea Nitrogen 79 MG/DL (7-18); Calcium 9.4 MG/DL (8.5-10.1); Carbon Dioxide 22 MMOL/L (21-32); Chloride 112 MMOL/L (98-107); Glucose 249 MG/DL (74-106); Sodium 143 MMOL/L (136-145); Total Protein 8.2 G/DL (6.4-8.2)
[2022-09-16 19:14] LABS: Target Cells 1+
[2022-09-16 19:15] LABS: Hypochromia Slight; Microcytosis Slight; Platelet Estimate Normal
[2022-09-16 20:16] LABS: Amorphous Crystals,Urine Occasional /HPF (Few); Bacteria,Urine Occasional /HPF (Few); Hyaline Casts,Urine 3 /LPF (0-3); Mucus,Urine Occasional /LPF (Occasional); RBC,Urine 2 /HPF (0-4); Squamous Epithelial Cell,Urine Occasional /HPF (0-10)
[2022-09-16 20:17] LABS: Bilirubin,Urine Large mg/dL (Negative); Blood, Urine Small mg/dL (Negative); Glucose,Urine (UA) >=1000 mg/dL (Negative); Ketones,Urine Trace mg/dL (Negative); Nitrite,Urine Negative (Negative); Protein,Urine 30 mg/dL (Negative); Urine Appearance Clear (Clear); Urine Color Dark Yellow (Yellow); Urine Urobilinogen 0.2 eU/dL (<2.0); Urine pH 5.5 (4.5-8.0)
[2022-09-16] MEDS ORDERED: INFLUENZA VIRUS VACCINE 0.5 ML SYRINGE IM ONE (21:56)
[2022-09-16] MEDS: TAMSULOSIN 0.4 MG CAPSULE PO SCH (22:36)
[2022-09-16] MEDS: SODIUM CHLORIDE 0.9% 1,000 ML IV SCH (22:38)
[2022-09-16] MEDS: MORPHINE ER 15 MG TABLET PO SCH (23:09)
[2022-09-17] MEDS ORDERED: ALBUTEROL 2.5 MG/3 ML NEB RESP TX PRN (01:00)
[2022-09-17 06:15] LABS: Basophils % 0.3 % (0.0-0.8); Eosinophils % 0.3 % (0.00-10.9); Hematocrit 29.8 VOL% (42.0-52.0); Hemoglobin 9.4 GM/DL (14.0-18.0); Lymphocytes # 1.5 10*3/uL (1.4-4.0); Lymphocytes % 15.1 % (21.2-54.2); Mean Corpuscular HGB Conc 31.5 GM/DL (32-36); Mean Corpuscular Volume 81.2 FL (87-102); Mean Platelet Volume 10.9 FL (9.6-12.0); Monocytes # 0.9 10*3/uL (0.11-0.8); Monocytes % 9.4 % (1.7-12.7); NRBC # 0.02 10*3/uL; Neutrophils % 73.9 % (38.7-73.9); Platelet Count 242 T/CUMM (130-400); Red Blood Count 3.67 MC/CUMM (3.8-5.5); Red Cell Distribution Width 18.7 % (9.3-17.3)
[2022-09-17 06:45] LABS: Albumin 1.9 G/DL (3.4-5.0); Bilirubin,Total 9.6 MG/DL (0.20-1.00); Calcium 9.3 MG/DL (8.5-10.1); Osmolality,Calculated 312.4 MOS/KG (273-304); Potassium 4.4 MMOL/L (3.5-5.1); Total Protein 7.9 G/DL (6.4-8.2)
[2022-09-17] MEDS: LEVOTHYROXINE 50 MCG TABLET PO SCH (07:21)
[2022-09-17] MEDS: SODIUM CHLORIDE 0.9% 1,000 ML IV SCH ×2 (07:21→15:21)
[2022-09-17] MEDS: INSULIN REGULAR 100 UNIT/ML SUBCUT SCH ×4 (07:53→21:53)
[2022-09-17] MEDS: amLODIPine 5 MG TABLET PO SCH (09:57)
[2022-09-17] MEDS: MONTELUKAST 10 MG TABLET PO SCH (09:57)
[2022-09-17] MEDS: METOPROLOL TARTRATE 50 MG TABLET PO SCH ×3 (09:57→22:04)
[2022-09-17] MEDS: APIXABAN 5 MG TABLET PO SCH ×2 (09:57→21:53)
[2022-09-17] MEDS: CETIRIZINE 10 MG TABLET PO SCH (09:57)
[2022-09-17] MEDS: TAMSULOSIN 0.4 MG CAPSULE PO SCH ×2 (09:57→21:53)
[2022-09-17] MEDS: PANTOPRAZOLE 40 MG TABLET PO SCH (09:57)
[2022-09-17 11:44] LABS: % Iron Saturation 21.1 % (18-50)
[2022-09-17] MEDS: MORPHINE ER 15 MG TABLET PO SCH ×2 (11:46→21:58)
[2022-09-17] MEDS: ONDANSETRON 4 MG/2 ML VIAL IV PRN (11:50)
[2022-09-17 12:06] LABS: Vitamin B12 > 2000 PG/ML (211-911)
[2022-09-17] MEDS ORDERED: MORPHINE 2 MG/1 ML SYRINGE IV PRN (14:11)
[2022-09-17] MEDS ORDERED: hydrALAZINE 20 MG/1 ML VIAL IV PRN (14:18)
[2022-09-17] MEDS: MIRTAZAPINE 15 MG TABLET PO SCH (21:53)
[2022-09-18] MEDS: SODIUM CHLORIDE 0.9% 1,000 ML IV SCH ×2 (00:29→11:11)
[2022-09-18 05:09] LABS: Basophils # 0.1 10*3/uL (0.0-0.2); Basophils % 0.4 % (0.0-0.8); Eosinophils # 0.1 10*3/uL (0.0-0.87); Eosinophils % 0.8 % (0.00-10.9); Immature Granulocytes % 0.7 %; Immature Granulocytes Absolute 0.09 #; Lymphocytes # 1.1 10*3/uL (1.4-4.0); Mean Corpuscular Volume 82.4 FL (87-102); Mean Platelet Volume 10.8 FL (9.6-12.0); Monocytes % 8.4 % (1.7-12.7); NRBC # 0.04 10*3/uL; Neutrophils % 80.7 % (38.7-73.9); Platelet Count 237 T/CUMM (130-400); Red Blood Count 3.52 MC/CUMM (3.8-5.5); Red Cell Distribution Width 19.7 % (9.3-17.3); White Blood Count 12.3 T/CUMM (4-12)
[2022-09-18 05:27] LABS: Osmolality,Calculated 311.7 MOS/KG (273-304)
[2022-09-18] MEDS: LEVOTHYROXINE 50 MCG TABLET PO SCH (05:33)
[2022-09-18] MEDS: INSULIN REGULAR 100 UNIT/ML SUBCUT SCH ×4 (08:35→21:36)
[2022-09-18] MEDS: APIXABAN 5 MG TABLET PO SCH ×2 (08:48→21:37)
[2022-09-18] MEDS: METOPROLOL TARTRATE 50 MG TABLET PO SCH ×2 (08:48→17:27)
[2022-09-18] MEDS: TAMSULOSIN 0.4 MG CAPSULE PO SCH ×2 (08:48→21:36)
[2022-09-18] MEDS: MONTELUKAST 10 MG TABLET PO SCH (08:49)
[2022-09-18] MEDS: MORPHINE ER 15 MG TABLET PO SCH ×2 (08:49→21:36)
[2022-09-18] MEDS: PANTOPRAZOLE 40 MG TABLET PO SCH (08:49)
[2022-09-18] MEDS: amLODIPine 5 MG TABLET PO SCH (08:49)
[2022-09-18] MEDS: CETIRIZINE 10 MG TABLET PO SCH (08:49)
[2022-09-18] MEDS: cefTRIAXone 1,000 MG in SODIUM CHLORIDE 0.9% 100 ML IV SCH (13:04)
[2022-09-18] MEDS: DEXTROSE 5% 1,000 ML IV SCH (15:00)
[2022-09-18 17:09] LABS: Bacteria,Urine Occasional /HPF (Few); RBC,Urine 1 /HPF (0-4); Squamous Epithelial Cell,Urine Occasional /HPF (0-10)
[2022-09-18 17:10] LABS: Bilirubin,Urine Large mg/dL (Negative); Blood, Urine Trace mg/dL (Negative); Glucose,Urine (UA) 500 mg/dL (Negative); Ketones,Urine 15 mg/dL (Negative); Nitrite,Urine Negative (Negative); Protein,Urine 30 mg/dL (Negative); Urine Appearance Clear (Clear); Urine Color Yellow (Yellow); Urine Urobilinogen 0.2 eU/dL (<2.0)
[2022-09-18] MEDS: MIRTAZAPINE 15 MG TABLET PO SCH (21:37)
[2022-09-19] MEDS: DEXTROSE 5% 1,000 ML IV SCH ×3 (02:15→23:27)
[2022-09-19 05:31] LABS: Basophils % 0.2 % (0.0-0.8); Eosinophils % 0.3 % (0.00-10.9); Hematocrit 29.2 VOL% (42.0-52.0); Hemoglobin 8.9 GM/DL (14.0-18.0); Immature Granulocytes % 1.1 %; Lymphocytes # 0.7 10*3/uL (1.4-4.0); Lymphocytes % 7.7 % (21.2-54.2); Mean Corpuscular HGB Conc 30.5 GM/DL (32-36); Mean Corpuscular Volume 83.2 FL (87-102); Mean Platelet Volume 11.3 FL (9.6-12.0); Monocytes # 0.7 10*3/uL (0.11-0.8); Monocytes % 7.6 % (1.7-12.7); NRBC # 0.03 10*3/uL; Neutrophils % 83.1 % (38.7-73.9); Platelet Count 207 T/CUMM (130-400); Red Blood Count 3.51 MC/CUMM (3.8-5.5); Red Cell Distribution Width 19.8 % (9.3-17.3); White Blood Count 9.4 T/CUMM (4-12)
[2022-09-19 05:49] LABS: Calcium 8.9 MG/DL (8.5-10.1); Osmolality,Calculated 302.8 MOS/KG (273-304); Potassium 3.7 MMOL/L (3.5-5.1)
[2022-09-19] MEDS: LEVOTHYROXINE 50 MCG TABLET PO SCH (07:42)
[2022-09-19] MEDS: METOPROLOL TARTRATE 50 MG TABLET PO SCH ×2 (07:42→17:18)
[2022-09-19] MEDS: INSULIN REGULAR 100 UNIT/ML SUBCUT SCH ×4 (07:52→21:48)
[2022-09-19] MEDS: APIXABAN 5 MG TABLET PO SCH ×2 (09:06→21:48)
[2022-09-19] MEDS: TAMSULOSIN 0.4 MG CAPSULE PO SCH ×2 (09:06→21:48)
[2022-09-19] MEDS: MONTELUKAST 10 MG TABLET PO SCH (09:06)
[2022-09-19] MEDS: CETIRIZINE 10 MG TABLET PO SCH (09:06)
[2022-09-19] MEDS: PANTOPRAZOLE 40 MG TABLET PO SCH (09:07)
[2022-09-19] MEDS: MORPHINE ER 15 MG TABLET PO SCH ×2 (09:07→21:49)
[2022-09-19] MEDS: amLODIPine 5 MG TABLET PO SCH (09:07)
[2022-09-19] MEDS: cefTRIAXone 1,000 MG in SODIUM CHLORIDE 0.9% 100 ML IV SCH (12:24)
[2022-09-19] MEDS ORDERED: AZITHROMYCIN INJ 500 MG in SODIUM CHLORIDE 0.9% 250 ML IV SCH (13:00)
[2022-09-19] MEDS: MIRTAZAPINE 15 MG TABLET PO SCH (21:49)
[2022-09-20] MEDS: LEVOTHYROXINE 50 MCG TABLET PO SCH (06:06)
[2022-09-20] MEDS: INSULIN REGULAR 100 UNIT/ML SUBCUT SCH ×2 (07:51→12:59)
[2022-09-20] MEDS: METOPROLOL TARTRATE 50 MG TABLET PO SCH (07:55)
[2022-09-20] MEDS: MORPHINE ER 15 MG TABLET PO SCH ×2 (07:58→12:58)
[2022-09-20] MEDS: ONDANSETRON 4 MG/2 ML VIAL IV PRN (08:03)
[2022-09-20] MEDS: DEXTROSE 5% 1,000 ML IV SCH (09:29)
[2022-09-20 11:50] VITALS: BP 163/71
[2022-09-20] MEDS: APIXABAN 5 MG TABLET PO SCH (12:57)
[2022-09-20] MEDS: TAMSULOSIN 0.4 MG CAPSULE PO SCH (12:58)
[2022-09-20] MEDS: MONTELUKAST 10 MG TABLET PO SCH (12:59)
[2022-09-20] MEDS: PANTOPRAZOLE 40 MG TABLET PO SCH (12:59)
[2022-09-20] MEDS: amLODIPine 5 MG TABLET PO SCH (12:59)
[2022-09-20] MEDS: CETIRIZINE 10 MG TABLET PO SCH (12:59)
== END 2022-09-20 12:39 | disposition hospice, home (50) | DRG 682 ==
LOC: EDBD → EDUNIT# → N.ED 16:17 → N.EDINP 20:13 → N.TELES 21:28
PROVIDERS: ADMIT Internal Medicine; ATTEND Internal Medicine